=== PATIENT | female | born 1985 | race Caucasian/White ===

== ENCOUNTER 2022-03-23 14:15 | Emergency (ER) | payer MEDICAID, OTHER ==
[~2022-03-23] VITALS: Ht 162.6 cm; Wt 72.0 kg
[~2022-03-23 14:15] MED LIST: NO MEDS
[2022-03-23 16:15] VITALS: BP 110/65
== END 2022-03-23 16:18 | disposition home or self-care (01) ==
LOC: EMS 14:15
DX: S01.81XA Laceration without foreign body of other part of head, initial encounter (principal); Z98.890 Other specified postprocedural states; W22.8XXA Striking against or struck by other objects, initial encounter; Y93.89 Activity, other specified; Y92.009 Unspecified place in unspecified non-institutional (private) residence as the place of occurrence of the external cause; Y99.8 Other external cause status
CPT/HCPCS: 12011; 99282; Z7502

== ENCOUNTER 2022-04-02 15:44 | Emergency (ER) | payer OTHER ==
[~2022-04-02] VITALS: Ht 157.5 cm; Wt 75.0 kg
[2022-04-02 15:52] VITALS: BP 98/71
== END 2022-04-02 17:10 | disposition home or self-care (01) ==
LOC: EMS 15:47
DX: S01.01XD Laceration without foreign body of scalp, subsequent encounter (principal); F17.210 Nicotine dependence, cigarettes, uncomplicated; X58.XXXD Exposure to other specified factors, subsequent encounter; Z48.02 Encounter for removal of sutures
CPT/HCPCS: 99281; Z7502